=== PATIENT | female | born 1975 | race Caucasian/White ===

== ENCOUNTER 2020-10-08 17:14 | Outpatient (REF) | payer OTHER, SELFPAY | END 2020-10-08 17:15 | disposition home or self-care (01) | LOC: HO.LAB 17:14 | PROVIDERS: PCP Internal Medicine; Visit Provider Internal Medicine | DX: Z20.828 Contact with and (suspected) exposure to other viral communicable diseases (principal) | CPT/HCPCS: C9803; U0003 ==

== ENCOUNTER 2020-12-31 13:36 | Outpatient (REF) | payer OTHER, SELFPAY | END 2020-12-31 13:37 | disposition home or self-care (01) | LOC: HO.LAB 13:36 | PROVIDERS: Visit Provider Internal Medicine | DX: Z20.822 Contact with and (suspected) exposure to COVID-19 (principal) | CPT/HCPCS: 36415; C9803; U0003; U0005 ==